=== PATIENT | female | born 1960 | race Caucasian/White ===

== ENCOUNTER → 2016-07-01 | Outpatient (CLI) | payer OTHER ==
--- NOTE | 2016-07-02 08:19 | CT ---
EXAMINATION TYPE: CT abdomen w con DATE OF EXAM: 07/01/2016 5:53 PM COMPARISON: CT abdomen pelvis 06 December 2010 HISTORY: RUQ pain for 8-10 months. History of colon cancer CT DLP: 910.1 mGycm Automated exposure control for dose reduction was used. TECHNIQUE: Helical acquisition of images was performed from the lung bases through the top of iliac crest to include entire abdomen. CONTRAST: Performed with Oral Contrast and with IV Contrast, patient injected with 100 mL of Omnipaque 300. FINDINGS: LUNG BASES: No significant abnormality is appreciated. LIVER/GB: The liver shows low attenuation suggestive of fatty infiltration. Gallbladder is absent. T he liver is enlarged.. PANCREAS: Unremarkable SPLEEN: No significant abnormality is seen. ADRENALS: No significant abnormality is seen. KIDNEYS: No significant abnormality is seen. BOWEL: Diverticular changes associated with the colon. Suspect postop change in the pelvis although this is not included in the exam. Anterior abdominal wall shows postop change. OSSEOUS STRUCTURES: There is a spinal curvature. Degenerative disc changes in the visualized spine. Sacroiliac joints show probable stress changes, degenerative change. FREE AIR: No Free Air visible ASCITES: None visible. RETROPERITONEAL ADENOPATHY: No Retroperitoneal Adenopathy visible. OTHER: Aorta is not dilated. There may be a small hiatal hernia. IMPRESSION: HEPATOMEGALY, FATTY INFILTRATION OF THE LIVER. DIVERTICULOSIS. POSTOP CHANGES. ADDITIONAL FINDINGS AB OVE.
== END | disposition home or self-care (01) ==
LOC: RADCTMAIN 16:11
PROVIDERS: ATTEND Physician Assistant Medical
DX: K57.90 Diverticulosis of intestine, part unspecified, without perforation or abscess without bleeding (principal); K76.0 Fatty (change of) liver, not elsewhere classified; R16.0 Hepatomegaly, not elsewhere classified; Z85.038 Personal history of other malignant neoplasm of large intestine; Z98.890 Other specified postprocedural states
CPT/HCPCS: 74160; Q9967

== ENCOUNTER 2022-06-26 08:23 | Day surgery (SDC) | payer OTHER ==
[2022-06-24 10:21] VITALS: BMI 40.2
[~2022-06-26 08:23] MED LIST: LIDOCAINE 1% (10MG/ML) FOR IV START INTRADERMA PRN
[2022-06-26 09:07] VITALS: TEMP 98.1
[2022-06-26] MEDS: LACTATED RINGERS 1,000 ML IV SCH ×2 (09:14→09:15)
[2022-06-26] MEDS ORDERED: LIDOCAINE 2% INJ 20 MG/ML (2 ML VIAL) ONE (09:16)
[2022-06-26] MEDS ORDERED: PROPOFOL 10 MG/ML 20 ML VIAL IV ONE (09:16)
--- NOTE | 2022-06-26 09:18 | P.GSHP ---
History of Present Illness H&P Date: 06/26/22 Chief Complaint: Screening colonoscopy This a 61-year-old female presents today for screening colonoscopy. Patient denies a significant GI complaints. She has a strong family history colon cancer with her mother having colon cancer. Patient has previous sigmoid resection for diverticulitis. Past Medical History Past Medical History: Cancer, GERD/Reflux, Hypertension, Musculoskeletal Disorder, Rheumatoid Arthritis (RA), Skin Disorder Additional Past Medical History / Comment(s): Hx migraines, varicose veins, hiatal hernia, hx diverticulitis, hx colon cancer 21 yrs ago, degenerative disc disease, acne, hx anemia. History of Any Multi-Drug Resistant Organisms: None Reported Past Surgical History: Back Surgery, Bowel Resection, Breast Surgery, Cholecy stectomy, Hernia Repair, Joint Replacement, Uterine Ablation Additional Past Surgical History / Comment(s): LEFT KNEE REPLACEMENT, SURGERY OF LEFT KIDNEY-BENIGN TUMOR REMOVED, MULTIPLE COLONOSCOPIES, breast biopsy(does not recall which side). Past Anesthesia/Blood Transfusion Reactions: Motion Sickness, Postoperative Nausea & Vomiting (PONV) Past Psychological History: Anxiety Additional Psychological History / Comment(s): CLAUSTROPHOBIA. Smoking Status: Never smoker Past Alcohol Use History: Rare Past Drug Use History: None Reported - Past Family History Mother Family Medical History: Cancer, Deep Vein Thrombosis (DVT) Additional Family Medical History / Comment(s): COLON CANCER. Sister(s) Family Medical History: Cancer Additional Family Medical History / Comment(s): Ovarian cancer. Father Family Medical History: Coronary Artery Disease (CAD), Hypertension Additional Family Medical History / Comment(s): HEART STENT Medications and Allergies Home Medications Medication Instructions Recorded Confirmed Type Losartan/Hydrochlorothiazide 1 tab PO DAILY 06/24/22 06/26/22 History [Losartan-Hctz 100-12.5 mg Tab] Allergies Allergy/AdvReac Type Severity Reaction Status Date / Time No Known Allergies Allergy Verified 06/26/22 09:01 Surgical - Exam Vital Signs Temp Pulse Resp BP Pulse Ox 98.1 F 91 16 148/81 97 06/26/22 09:06 06/26/22 09:06 06/26/22 09:06 06/26/22 09:06 06/26/22 09:06 - General well developed, well nourished, no distress - Eyes PERRL - ENT normal pinna - Neck no masses - Respiratory normal expansion - Cardiovascular Rhythm: regular - Abdomen Abdomen: soft, non tender Assessment and Plan Assessment: Family history of colon cancer. We'll perform screening colonoscopy
--- NOTE | 2022-06-26 09:28 | P.OP ---
Date of Procedure: 06/26/22 Preoperative Diagnosis: Screening colonoscopy Postoperative Diagnosis: Diverticulosis Procedure(s) Performed: Colonoscopy Anesthesia: MAC Surgeon: Jose Morris Pathology: none sent Condition: stable Disposition: PACU Description of Procedure: Based on the endoscopy table in the lateral position. She received IV sedation. Digital rectal exam was performed. This revealed no abnormalities. The colonoscope was then placed patient anus and passed throughout the entire colon. The ileocecal valve was visually is. The cecum, ascending and transverse colon appeared normal. In the descending colon there is extensive diverticular changes. Patient previous sigmoid colectomy. The scope was brought back into the rectum this appeared normal. Scope withdrawn for patient.
[2022-06-26 09:44] VITALS: BP 152/77; PULSE 90; RESP 15
== END 2022-06-26 10:05 | disposition home or self-care (01) ==
LOC: ORWHC2ENDO 08:23
PROVIDERS: ATTEND Surgery
DX: Z12.11 Encounter for screening for malignant neoplasm of colon (principal); K57.30 Diverticulosis of large intestine without perforation or abscess without bleeding; I10 Essential (primary) hypertension; K21.9 Gastro-esophageal reflux disease without esophagitis
CPT/HCPCS: 45378; J2704; J2001

== ENCOUNTER → 2023-08-03 | Outpatient (CLI) | payer OTHER ==
--- NOTE | 2023-08-03 17:38 | US ---
EXAMINATION TYPE: US pelvis complete transvag DATE OF EXAM: 08/03/2023 COMPARISON: None CLINICAL INDICATION: Female, 62 years old with history of Z80.41 Z85.038 PERSONAL HISTORY OF MALIGNAN T NEOPL; hx fibroids per patient, PMB TECHNIQUE: Transvaginal (TV) and Transabdominal (TA) . Transabdominal sonographic images of the pel vis were acquired. Transvaginal sonographic images were medically necessary to better assess the fol lowing anatomy: Endometrium Date of LMP: IMPLEMENTATION ANALYST, EXAM MEASUREMENTS: Uterus: 10.5 x 6.1 x 4.4 cm Endometrial Stripe: 0.6 cm 1. Uterus: Anteverted Enlarged in size. Two hypoechoic lesions within left uterus, 1: uterine bod y = 5.7 x 6.2 x 5.3 cm. 2: CINDA/Cervical = 3.1 x 3.2 x 2.0 cm 2. Endometrium: Appears heterogenous 3. Right Ovary: Obscured by overlying bowel gas 4. Left Ovary: Obscured by overlying bowel gas 5. Bilateral Adnexa: wnl 6. Posterior cul-de-sac: no free fluid IMPRESSION: 1. Endometrium within normal limits for thickness. 2. Heterogenous endometrium with multiple fibroids within the uterus.
== END | disposition home or self-care (01) ==
LOC: RADUSWWP 14:30
PROVIDERS: ATTEND Family Medicine
DX: D25.9 Leiomyoma of uterus, unspecified (principal); Z80.41 Family history of malignant neoplasm of ovary; Z85.038 Personal history of other malignant neoplasm of large intestine
CPT/HCPCS: 76830; 76856

== ENCOUNTER → 2023-09-04 | Outpatient (CLI) | payer OTHER ==
--- NOTE | 2023-09-09 19:09 | CT ---
EXAMINATION TYPE: CT abdomen pelvis w con DATE OF EXAM: 09/04/2023 COMPARISON: 07/01/2016, 12/06/2010 and ultrasound 08/03/2023 HISTORY: 62-year-old female R10.32, LLQ abdominal pain x 6 months, recent hematuria TECHNIQUE: Contiguous axial scanning of the abdomen and pelvis following administration of 100 ml Iso [place] 300 IV contrast. Delayed images through the kidneys and coronal/sagittal reconstructions perform ed. CT DLP: 1629 mGycm Automated exposure control for dose reduction was used. FINDINGS: Heart borderline in size without pericardial effusion. Some strandy subpleural scarring at the posteromedial right lung base. No pleural effusion. Tiny hiatal hernia suggested. The liver is enlarged at 19.1 cm with suspected mild fatty infiltration. Portal venous system is delaney nt. No biliary ductal dilatation. Cholecystectomy clips. Adrenal glands, kidneys, spleen, and pancreas show no gross abnormality. No dilated small bowel, free fluid, or free air. No mesenteric or retroperitoneal lymphadenopathy. Previous ventral abdominal wall mesh repair along the infraumbilical region. Mild scattered stool. Scattered colonic diverticulosis. Oral contrast extending distally to the rectu m. Post surgical change rectosigmoid junction with end to side anastomosis. Bladder urine distended. Uterus anteverted. Large suspected degenerating fibroid measuring 6.1 x 5.6 x 4.9 cm along the left lateral uterine body, likely predominantly intramural but partially subserosa l. Not as well seen in 2016. Relatively stable compared to recent ultrasound 08/03/2023. Both ovaries are visualized. No abnormal fluid collection in the pelvis or pelvic lymphadenopathy. Bones: Baastrup's disease. Moderate degenerative disc disease lower lumbar spine and hypertrophic fac et arthropathy. Anterior endplate spondylosis lower thoracic spine. IMPRESSION: 1. PREVIOUS INFRAUMBILICAL, VENTRAL ABDOMINAL WALL MESH REPAIR, CHOLECYSTECTOMY, AND DISTAL COLON RES ECTION WITH RECTOSIGMOID ANASTOMOSIS. 2. HEPATOMEGALY AT 19.1 CM. SUSPECT UNDERLYING FATTY INFILTRATION. 3. SCATTERED COLONIC DIVERTICULOSIS WITHOUT ACUTE DIVERTICULITIS. 4. SUSPECT A DEGENERATING 6.1 CM FOCAL FIBROID ALONG THE LEFT LATERAL UTERINE BODY. PREDOMINANTLY INT RAMURAL BUT PARTIALLY SUBSEROSAL.
== END | disposition home or self-care (01) ==
LOC: RADCTMAIN 14:01
PROVIDERS: ATTEND Surgery
DX: K57.30 Diverticulosis of large intestine without perforation or abscess without bleeding (principal); R31.9 Hematuria, unspecified; R16.0 Hepatomegaly, not elsewhere classified; Z90.49 Acquired absence of other specified parts of digestive tract; Z98.890 Other specified postprocedural states
CPT/HCPCS: 74177; Q9967

== ENCOUNTER 2023-09-10 08:16 | Day surgery (SDC) | payer OTHER ==
[2023-09-08 11:20] VITALS: BMI 38.4
[2023-09-10 08:44] VITALS: TEMP 97.9
[2023-09-10] MEDS: LACTATED RINGERS 1,000 ML IV SCH (08:48)
[2023-09-10] MEDS: IV FLUID CONTINUATION 1,000 ML IV ONE (08:48)
[2023-09-10] MEDS: ONDANSETRON 4 MG/2 ML VIAL IVP PRN (08:52)
[2023-09-10] MEDS ORDERED: LIDOCAINE 1% INJ 10MG/ML (20 ML MDV) ONE (09:27)
[2023-09-10] MEDS ORDERED: PROPOFOL 10 MG/ML 20 ML VIAL IV ONE (09:27)
--- NOTE | 2023-09-10 09:43 | P.OP ---
Date of Procedure: 09/10/23 Preoperative Diagnosis: diverticulitis Postoperative Diagnosis: diverticulosis Procedure(s) Performed: colonoscopy Anesthesia: MAC Surgeon: Jose Morris Pathology: none sent Condition: stable Disposition: PACU Description of Procedure: the patient's placed on the endoscopy table in the lateral position her she received IV sedation. Digital rectal exam was performed. This revealed no abnormalities. The flexible colonoscope was then placed patient anus and passed throughout the entire colon. The ileocecal valve was visualized. The cecum, appeared normal. In the ascending and transverse colon there is some mild diverticular changes. The scope back to the descending colon and more diverticula changes were seen. The patient a previous sigmoid resection. The rectum appeared normal. Scope was withdrawn for patient.
[2023-09-10 10:05] VITALS: BP 113/55; PULSE 80; RESP 18
== END 2023-09-10 10:26 | disposition home or self-care (01) ==
LOC: ORWHC2ENDO 08:16
PROVIDERS: ATTEND Surgery
DX: K57.30 Diverticulosis of large intestine without perforation or abscess without bleeding (principal); I10 Essential (primary) hypertension; M06.9 Rheumatoid arthritis, unspecified; F41.9 Anxiety disorder, unspecified; K21.9 Gastro-esophageal reflux disease without esophagitis; F40.240 Claustrophobia; Z79.899 Other long term (current) drug therapy; Z90.49 Acquired absence of other specified parts of digestive tract; Z98.890 Other specified postprocedural states
CPT/HCPCS: 45378; J2405; J2001; J2704